=== PATIENT | male | born 1985 | race Caucasian/White ===

== ENCOUNTER 2018-06-08 15:28 | Emergency (ER) | payer OTHER ==
[~2018-06-08] VITALS: Ht 175.3 cm; Wt 90.7 kg
[~2018-06-08 15:28] MED LIST: BACTRIM DS TAB1 EACH PO; PREDNISONE 10 M10 MG PO; ZANTAC 150MG T150 M1 PO; ZYRTEC10 M1 PO
[2018-06-08] MEDS ORDERED: ERYTHROMYCIN E3.5 G2 OPHTHALMIC (16:08)
[2018-06-08 16:45] VITALS: BP 128/90
== END 2018-06-08 16:46 | disposition home or self-care (01) ==
LOC: M.ERS 15:28
DX: T15.02XA Foreign body in cornea, left eye, initial encounter (principal); F17.210 Nicotine dependence, cigarettes, uncomplicated; X58.XXXA Exposure to other specified factors, initial encounter; Y93.89 Activity, other specified; Y92.89 Other specified places as the place of occurrence of the external cause; Y99.8 Other external cause status